=== PATIENT | male | born 1955 | race Caucasian/White ===

== ENCOUNTER 2021-08-31 08:04 | Emergency (ER) | payer MEDICARE, OTHER, SELFPAY ==
--- NOTE | 2021-08-31 08:00 | RT.EKG_ITS ---
APPROVED REPORT Exam: Resting ECG Reason for Exam: chest pain Patient Location: E HR:65 bpm ECG Measurements Heart Rate 65 AXIS NV 152 P 0 QRSd 92 QRS 61 QT 386 T 49 QTc 401 Conclusion Sinus rhythm...normal P axis, V-rate 60- 99 Low voltage, extremity leads...all extremity leads <0.5mV
[2021-08-31 08:12] VITALS: BP 123/77; PULSE 68; RESP 20; TEMP 36.7; O2SAT 95
--- NOTE | 2021-08-31 08:12 | W.ED.GENAD ---
Discharge Plan Disposition Patient Disposition: HOME Condition: Stable Discharge Details Clinical Impression: Abdominal pain, Chest pain Primary Care Provider: Mariela,Local ED Provider: Rj Cohn Home Meds and New Rx's Prescriptions: Continued multivitamin [Multiple Vitamins] Tablet 1 tab PO DAILY RF: 0 atorvastatin 40 mg Tablet 40 mg PO DAILY RF: 0 donepezil 10 mg Tablet 10 mg PO DAILY RF: 0 azathioprine 50 mg Tablet 50 mg PO BID RF: 0 aspirin 81 mg Tablet,Delayed Release (Dr/Ec) 81 mg PO DAILY RF: 0 ascorbic acid (vitamin C) [Vitamin C] 500 mg Tablet 500 mg PO DAILY RF: 0 memantine 10 mg Tablet 10 mg PO DAILY RF: 0 mesalamine 500 mg Capsule, Extended Release 500 mg PO QID RF: 0 Discharge Instructions Instructions: Chest Pain (ED), Abdominal Pain (ED) Additional Instructions: Laboratory values do not reveal any obvious emergent process. I would like you to please watch for new or worsening symptoms and return to our ER or any ER longer travels. Otherwise I recommend following up with your primary care provider when you return home to [place]. Medical Decision Making 65-year-old gentleman with past medical history of dementia, ulcerative colitis, currently traveling from [place], presenting to the ER for right sided upper abdominal-lower chest pain that began last night, worse overnight around 2-3:00, per now appears to be much better. Has had similar episodes over the past year, primary care provider believes is likely his gallbladder but he has yet to be seen by GI. Denies bad food exposure or recent sick contacts. He is vaccinated against Covid. Currently he has no acute concerns with planes. Appears well, nontoxic, abdomen, soft, nontender. Bowel sounds equal throughout. Vital signs unremarkable, hemodynamically stable, afebrile. Given his dementia, difficult to obtain HPI, vague right sided abdominal-chest discomfort will obtain chest pain work-up including D-dimer, lactate, lipase, give IV fluid Given symptoms began last night and were worse around 2-3:00 this morning, I do believe a single troponin is reasonable as this is at least a 4-hour troponin. Laboratory values reveal a white blood cell count of 4.28, hemoglobin 13.9 hematocrit 43.8 platelet count 306. D-dimer when age-adjusted is negative at 530, lactate 1.7, electrolytes unremarkable, creatinine 1 with a GFR greater than 60. Magnesium 2.6 troponin less than 0.05, lipase 98. Urinalysis reveals trace ketones but no signs of infection or hematuria, patient is receiving 1 L of IV fluid. Patient remains asymptomatic, reports that he is becoming anxious, impatient, would like him to be removed from the monitor, IV pulled, and to get dressed. They would like to be discharged. Patient is receiving 1 L IV fluid and plan is to repeat the lactate to be sure it is trending downward. He appears well, nontoxic, abdomen, soft, nontender. While this very well could be biliary colic, certainly cannot rule out gastritis, ulcer, etc. Based upon his laboratory values, extremely suspicion for ACS, PE, pneumonia, etc. Clinically extremely low suspicion for dissection. Repeat lactate after 1 L IV fluid is 0.9 Discussed repeat lactate with patient and family. No additional questions or concerns, requesting discharge. Standard discharge and return precautions provided. We discussed the importance of following up with his primary care provider when they return home to [place] for his ongoing symptoms of 1 year, otherwise returning here or any ER longer travels for new or worsening symptoms. This documentation was generated using [employer] dictation system, please disregard any oddities of phrase or misspellings. Imaging Data Radiologic Study: Attestation: I personally reviewed and interpreted this imaging study as follows: Imaging: X-Ray Radiologist's impression: Exam(s) XR CHEST 2V PA LATERAL EXAM: XR CHEST 2V PA LATERAL CLINICAL HISTORY: RUQ/chest pain TECHNIQUE: 2D digital imaging was performed of the chest. Two images were obtained. PA and lateral views were obtained. COMPARISON: No exams were available for comparison FINDINGS: MEDIASTINUM: Normal. HEART: Normal. PULMONARY VASCULATURE: Normal. LUNGS: Clear. PLEURAL SPACE: No pleural effusion or pneumothorax. BONE:Within normal limits for the patient's age. OTHER FINDINGS:Normal. IMPRESSION: No acute pulmonary findings. Lab Data Lab results reviewed: Yes I reviewed the patient's lab results. Labs: Laboratory Tests Range/Units 08/31/21 08/31/21 08/31/21 08:45 08:45 08:45 WBC (4.4-10.8) 10^3/uL RBC (4.36-5.78) 10^6/uL Hgb (13.5-17.5) g/dL Hct (40.0-50.0) % MCV (80-95) fL MCH (27.0-33.0) pg MCHC (32.0-36.0) % RDW (11.8-14.1) % Plt Count (130-400) 10^3/uL MPV (8.0-11.0) fL Immature Gran % Neutrophils % Lymphocytes % Monocytes % Eosinophils % Basophils % Nucleated RBC % % Absolute Neutrophils (1.2-6.7) 10^3/uL Absolute Lymphocytes (1.2-3.4) 10^3/uL Absolute Monocytes (0.1-0.8) 10^3/uL Absolute Eosinophils (0.0-0.7) 10^3/uL Absolute Basophils (0.0-0.2) 10^3/uL PT (9.3-11.0) sec 10.4 INR (0.9-1.1) 1.0 APTT (21.0-27.5) sec 23.0 D-Dimer (<500) ng/mlFEU 530 H VBG Lactate (0.6-1.4) mmol/L 1.7 H Sodium (136-145) mmol/L 144 Potassium (3.5-5.1) mmol/L 4.8 Chloride (98-107) mmol/L 106 Carbon Dioxide (21.0-32.0) mmol/L 33.0 H Anion Gap (3-11) mmol/L 5.0 BUN (7-18) mg/dL 20 H Creatinine (0.70-1.30) mg/dL 1.0 Estimated GFR/1.73 m2 (mL/min/1.73m2) >= 60.00 Glucose (74-106) mg/dL 95 Calcium (8.5-10.1) mg/dL 9.6 Magnesium (1.8-2.4) mg/dL 2.6 H Total Bilirubin (0.2-1.0) mg/dL 0.7 AST (15-37) U/L 24 ALT (16-63) U/L 20 Alkaline Phosphatase (46-116) U/L 95 Troponin I (<0.06) ng/mL < 0.05 Total Protein (6.4-8.2) g/dL 7.5 Albumin (3.4-5.0) g/dL 4.2 Lipase (73-393) U/L Urine Color (Yellow) Urine Clarity (Clear) Urine pH (5-8) Ur Specific [place] (1.005-1.025) Urine Protein (Negative) mg/dL Urine Ketones (Negative) mg/dL Urine Blood (Negative) Urine Nitrite (Negative) Urine Bilirubin (Negative) Urine Urobilinogen (Up TO 0.2) EU/dL Ur Leukocyte Esterase (Negative) Urine RBC (0-2) HPF Urine WBC (0-5) HPF Ur Epithelial Cells (Negative) HPF Urine Crystals (Negative) HPF Urine Bacteria (Negative) HPF Urine Casts (Negative) LPF Urine Mucus (Negative) Ur Culture Indicated? Urine Glucose (Negative) mg/dL COVID-19 Source Range/Units 08/31/21 08/31/21 08/31/21 08:45 08:56 10:30 WBC (4.4-10.8) 10^3/uL 4.28 L RBC (4.36-5.78) 10^6/uL 4.38 Hgb (13.5-17.5) g/dL 13.9 Hct (40.0-50.0) % 43.8 MCV (80-95) fL 100.0 H MCH (27.0-33.0) pg 31.7 MCHC (32.0-36.0) % 31.7 L RDW (11.8-14.1) % 12.2 Plt Count (130-400) 10^3/uL 306 MPV (8.0-11.0) fL 10.0 Immature Gran % 0.5 Neutrophils % 63.4 Lymphocytes % 25.2 Monocytes % 8.6 Eosinophils % 1.4 Basophils % 0.9 Nucleated RBC % % 0 Absolute Neutrophils (1.2-6.7) 10^3/uL 2.71 Absolute Lymphocytes (1.2-3.4) 10^3/uL 1.08 L Absolute Monocytes (0.1-0.8) 10^3/uL 0.37 Absolute Eosinophils (0.0-0.7) 10^3/uL 0.06 Absolute Basophils (0.0-0.2) 10^3/uL 0.04 PT (9.3-11.0) sec INR (0.9-1.1) APTT (21.0-27.5) sec D-Dimer (<500) ng/mlFEU VBG Lactate (0.6-1.4) mmol/L Sodium (136-145) mmol/L Potassium (3.5-5.1) mmol/L Chloride (98-107) mmol/L Carbon Dioxide (21.0-32.0) mmol/L Anion Gap (3-11) mmol/L BUN (7-18) mg/dL Creatinine (0.70-1.30) mg/dL Estimated GFR/1.73 m2 (mL/min/1.73m2) Glucose (74-106) mg/dL Calcium (8.5-10.1) mg/dL Magnesium (1.8-2.4) mg/dL Total Bilirubin (0.2-1.0) mg/dL AST (15-37) U/L ALT (16-63) U/L Alkaline Phosphatase (46-116) U/L Troponin I (<0.06) ng/mL Total Protein (6.4-8.2) g/dL Albumin (3.4-5.0) g/dL Lipase (73-393) U/L Urine Color (Yellow) [place] Urine Clarity (Clear) Clear Urine pH (5-8) 6.0 Ur Specific [place] (1.005-1.025) 1.025 Urine Protein (Negative) mg/dL Trace H Urine Ketones (Negative) mg/dL 15 H Urine Blood (Negative) Negative Urine Nitrite (Negative) Negative Urine Bilirubin (Negative) Small H Urine Urobilinogen (Up TO 0.2) EU/dL 0.2 Ur Leukocyte Esterase (Negative) Negative Urine RBC (0-2) HPF Negative Urine WBC (0-5) HPF 0-2 Ur Epithelial Cells (Negative) HPF Few Urine Crystals (Negative) HPF Negative Urine Bacteria (Negative) HPF Rare Urine Casts (Negative) LPF Negative Urine Mucus (Negative) Moderate Ur Culture Indicated? No Urine Glucose (Negative) mg/dL Negative COVID-19 Source Nasal/Nares Range/Units 08/31/21 08/31/21 10:56 10:56 WBC (4.4-10.8) 10^3/uL RBC (4.36-5.78) 10^6/uL Hgb (13.5-17.5) g/dL Hct (40.0-50.0) % MCV (80-95) fL MCH (27.0-33.0) pg MCHC (32.0-36.0) % RDW (11.8-14.1) % Plt Count (130-400) 10^3/uL MPV (8.0-11.0) fL Immature Gran % Neutrophils % Lymphocytes % Monocytes % Eosinophils % Basophils % Nucleated RBC % % Absolute Neutrophils (1.2-6.7) 10^3/uL Absolute Lymphocytes (1.2-3.4) 10^3/uL Absolute Monocytes (0.1-0.8) 10^3/uL Absolute Eosinophils (0.0-0.7) 10^3/uL Absolute Basophils (0.0-0.2) 10^3/uL PT (9.3-11.0) sec INR (0.9-1.1) APTT (21.0-27.5) sec D-Dimer (<500) ng/mlFEU VBG Lactate (0.6-1.4) mmol/L 0.9 Sodium (136-145) mmol/L Potassium (3.5-5.1) mmol/L Chloride (98-107) mmol/L Carbon Dioxide (21.0-32.0) mmol/L Anion Gap (3-11) mmol/L BUN (7-18) mg/dL Creatinine (0.70-1.30) mg/dL Estimated GFR/1.73 m2 (mL/min/1.73m2) Glucose (74-106) mg/dL Calcium (8.5-10.1) mg/dL Magnesium (1.8-2.4) mg/dL Total Bilirubin (0.2-1.0) mg/dL AST (15-37) U/L ALT (16-63) U/L Alkaline Phosphatase (46-116) U/L Troponin I (<0.06) ng/mL Total Protein (6.4-8.2) g/dL Albumin (3.4-5.0) g/dL Lipase (73-393) U/L 98 Urine Color (Yellow) Urine Clarity (Clear) Urine pH (5-8) Ur Specific [place] (1.005-1.025) Urine Protein (Negative) mg/dL Urine Ketones (Negative) mg/dL Urine Blood (Negative) Urine Nitrite (Negative) Urine Bilirubin (Negative) Urine Urobilinogen (Up TO 0.2) EU/dL Ur Leukocyte Esterase (Negative) Urine RBC (0-2) HPF Urine WBC (0-5) HPF Ur Epithelial Cells (Negative) HPF Urine Crystals (Negative) HPF Urine Bacteria (Negative) HPF Urine Casts (Negative) LPF Urine Mucus (Negative) Ur Culture Indicated? Urine Glucose (Negative) mg/dL COVID-19 Source ECG Data Attestation: I personally reviewed and interpreted this ECG (s) as follows: Interpretation: Please see official report by Dr. Rosen. Sinus rhythm, ventricular rate of 65, no STEMI. HPI General Mode of arrival: ambulatory. Date/Time Provider Initiated Documentation: 08/31/21 08:10. Limitations to Documentation: other (dementia). Information obtained by: patient and family. HPI Narrative: This is a 65-year-old male, past medical history of advanced dementia, ulcerative colitis, presents to the ER with his for evaluation of what she describes as a lower right chest pain, epigastric discomfort and right upper quadrant pain that has been intermittent over 1 year but she has noticed increase of discomfort over the past 24 hours, worse after eating. Patient has seen his primary care provider for this, determined it was likely GI, but because of his dementia, and inability to tolerate the procedures, has yet to follow-up with GI. They are traveling via car with 2 friends from [place], have been traveling for the past 7 days and will not be leaving the area for the next 3 days. Is vaccinated for Covid and test his booster as well. Denies fever, cough, shortness of breath, nausea, vomiting, skin rash, diarrhea, black tarry stools or bright red blood in his stools. Slightly decreased bowel movements over the past few days but still moving bowels. reports that he seems much better than he did late last night or very early this morning. Given his advanced dementia, HPI difficult to obtain from patient. Related Data Home Medications Medication Instructions Recorded Confirmed ascorbic acid (vitamin C) [Vitamin 500 mg PO DAILY 08/31/21 08/31/21 C] aspirin 81 mg PO DAILY 08/31/21 08/31/21 atorvastatin 40 mg PO DAILY 08/31/21 08/31/21 azathioprine 50 mg PO BID 08/31/21 08/31/21 donepezil 10 mg PO DAILY 08/31/21 08/31/21 memantine 10 mg PO DAILY 08/31/21 08/31/21 mesalamine 500 mg PO QID 08/31/21 08/31/21 multivitamin [Multiple Vitamins] 1 tab PO DAILY 08/31/21 08/31/21 Allergies Allergy/AdvReac Type Severity Reaction Status Date / Time No Known Allergies Allergy Unverified 08/31/21 08:22 Review of Systems Constitutional Constitutional: Denies fever(s), Denies headache(s) and Denies weakness ENT Ears, Nose, Mouth, and Throat: Denies headache(s) Cardiovascular Cardiovascular: Reports chest pain and Denies dyspnea Respiratory Respiratory: Denies cough and Denies dyspnea Gastrointestinal Gastrointestinal: Reports abdominal pain, Denies melena, Denies hematochezia, Denies diarrhea, Denies nausea and Denies vomiting Genitourinary Genitourinary: Denies dysuria Musculoskeletal Musculoskeletal: Denies back pain Integumentary/Breasts Skin/Breast: Denies rash Neurologic Neurologic: Denies headache(s) and Denies weakness [facility] Social History Smoking/Tobacco Use Status: Former Tobacco Use Smoking risk assessment performed?: Yes Alcohol Intake: never Drug use: Never Substance use type: does not use Exam Const General: cooperative, healthy appearing, comfortable and no acute distress Orientation: alert and awake [facility] Head: normal to inspection, normocephalic and atraumatic Face and sinus: normal facial exam Mouth: moist mucous membranes abnormal (Slightly dry) Eyes General: appearance normal, both eyes and all related structures Conjunctivae: conjunctivae normal Neck Neck: normal visual inspection, full ROM, trachea midline and supple Resp Effort & Inspection: normal respiratory effort and able to speak in complete sentences Auscultation: clear to auscultation bilaterally Cardio Rate: regular rate Rhythm: regular rhythm GI Inspection: normal to inspection Palpation: soft, not firm, no guarding, no pulsatile masses and nontender Auscultation: normal bowel sounds Back/Spine/Pelvis Back: No back tenderness Skin General skin exam: no rashes or lesions noted Neuro General: patient alert, patient awake, moves all extremities and no focal motor deficits Cognition: normal cognition Speech: speech normal Gait: normal gait Motor: muscle tone normal throughout and strength 5/5 throughout Sensory Exam: no sensory deficits noted Extrem General: normal to inspection, full ROM and capillary refill normal Psych Appearance: grossly normal Mental Status: mental status grossly normal
[2021-08-31 08:15] VITALS: BP 123/77; PULSE 68; PULSE 70; RESP 19
--- NOTE | 2021-08-31 08:15 | DI.RAD_ITS ---
Exam(s) XR CHEST 2V PA LATERAL EXAM: XR CHEST 2V PA LATERAL CLINICAL HISTORY: RUQ/chest pain TECHNIQUE: 2D digital imaging was performed of the chest. Two images were obtained. PA and lateral views were obtained. COMPARISON: No exams were available for comparison FINDINGS: MEDIASTINUM: Normal. HEART: Normal. PULMONARY VASCULATURE: Normal. LUNGS: Clear. PLEURAL SPACE: No pleural effusion or pneumothorax. BONE:Within normal limits for the patient's age. OTHER FINDINGS:Normal. IMPRESSION: No acute pulmonary findings. DATA REPOSITORY: RADIATION DOSE DELIVERED:
[2021-08-31 08:16] VITALS: BP 131/84; PULSE 71; PULSE 72; RESP 17
[2021-08-31 08:20] VITALS: BP 131/84; PULSE 63; RESP 18; O2SAT 95
[2021-08-31] MEDS: Normal Saline 1,000 ML 125 ML IV (08:30)
[2021-08-31 08:31] VITALS: BP 122/72; PULSE 62; PULSE 64; RESP 17; O2SAT 92
[2021-08-31 08:53] LABS: Lactate 1.7 mmol/L (0.6-1.4)
[2021-08-31 08:54] LABS: Abs Immature Grans 0.02 10^3/uL (0.0-0.06); Absolute Basophil Count 0.04 10^3/uL (0.0-0.2); Absolute Eosinophil Count 0.06 10^3/uL (0.0-0.7); Absolute Lymphocyte Count 1.08 10^3/uL (1.2-3.4); Absolute Monocyte Count 0.37 10^3/uL (0.1-0.8); Absolute Neutrophil Count 2.71 10^3/uL (1.2-6.7); Basophils % 0.9; Eosinophils % 1.4; HCT 43.8 % (40.0-50.0); HGB 13.9 g/dL (13.5-17.5); Immature Grans % 0.5; Lymphocytes % 25.2; MCH 31.7 pg (27.0-33.0); MCHC 31.7 % (32.0-36.0); Monocytes % 8.6; Neutrophils % 63.4; Nucleated RBC 0 %; Platelet Count 306 10^3/uL (130-400); RBC 4.38 10^6/uL (4.36-5.78); RDW 12.2 % (11.8-14.1); RDW-SD 45.4 fL; WBC 4.28 10^3/uL (4.4-10.8)
[2021-08-31 09:08] LABS: Prothrombin Time 10.4 sec (9.3-11.0)
[2021-08-31 09:11] LABS: ALT 20 U/L (16-63); AST 24 U/L (15-37); Albumin 4.2 g/dL (3.4-5.0); Alkaline Phosphatase 95 U/L (46-116); BUN 20 mg/dL (7-18); Bilirubin, Total 0.7 mg/dL (0.2-1.0); Calcium 9.6 mg/dL (8.5-10.1); Chloride 106 mmol/L (98-107); Glucose 95 mg/dL (74-106); Magnesium 2.6 mg/dL (1.8-2.4); Sodium 144 mmol/L (136-145); Total Protein 7.5 g/dL (6.4-8.2); Troponin I < 0.05 ng/mL (<0.06)
[2021-08-31 09:12] LABS: Potassium 4.8 mmol/L (3.5-5.1)
[2021-08-31 09:25] LABS: Source Nasal/Nares
[2021-08-31 09:40] VITALS: PULSE 61; RESP 25
[2021-08-31 10:11] LABS: D-Dimer 530 ng/mlFEU (<500)
[2021-08-31 10:43] LABS: Bilirubin Small (Negative); Blood Negative (Negative); Clarity Clear (Clear); Glucose Negative (Negative); Ketones 15 mg/dL (Negative); Leukocyte Esterase Negative (Negative); Nitrite Negative (Negative); Specific Gravity 1.025 (1.005-1.025); Urobilinogen 0.2 EU/dL (Up TO 0.2)
[2021-08-31 10:56] LABS: Bacteria Rare HPF (Negative); C & S Indicated? No; Casts Negative LPF (Negative); Crystals Negative HPF (Negative); Epithelial Cells Few HPF (Negative); Mucus Moderate (Negative); RBC Negative HPF (0-2); WBC 0-2 HPF (0-5)
--- NOTE | 2021-08-31 10:59 | NUR.NOTE ---
Nursing Note: Family requested fluids to be ended and pt disconnected from the monitor. Provider aware and consents to this. Family aware to wait for results of current lactate, drawn and in lab. Fluids left:150 cc, total input: 850 cc.
[2021-08-31 11:03] LABS: Lactate 0.9 mmol/L (0.6-1.4)
[2021-08-31 11:14] LABS: Lipase 98 U/L (73-393)
[2021-08-31 13:11] LABS: COVID-19 PCR Negative (Negative)
== END 2021-08-31 11:27 | disposition home or self-care (01) ==
PROVIDERS: Emergency Provider Physician Assistant
DX: R10.11 Right upper quadrant pain (principal); R07.9 Chest pain, unspecified
CPT/HCPCS: 36415; 80053; 83690; 87635; 93005; 96360; 96361; 99284; 71046; 81003; 81015; 83605; 83735; 84484; 85025; 85379; 85610; 85730; 93010